=== PATIENT | male | born 1960 | race Caucasian/White ===

== ENCOUNTER 2021-12-24 13:57 | Emergency (ER) | payer MEDICAID, OTHER ==
[~2021-12-24] VITALS: Ht 172.7 cm; Wt 93.0 kg
[~2021-12-24 13:57] MED LIST: ASPI-556 PO; GABA-1181 PO; INSLAN SQ; LISI-893 PO; METF500T PO; SIMV-260 PO
[2021-12-24 14:31] LABS: GLUCOSE,POINT OF CARE 317 MG/DL (70-110)
[2021-12-24] MEDS ORDERED: GLIP2.5T2 PO ×2 (16:05→16:18)
[2021-12-24] MEDS ORDERED: INSU100I26 SQ ×2 (16:05→16:18)
[2021-12-24] MEDS ORDERED: METF-1211 PO ×2 (16:05→16:18)
[2021-12-24] MEDS ORDERED: SIMV-260 PO ×2 (16:05→16:18)
[2021-12-24] MEDS ORDERED: OMEP20 PO ×2 (16:05→16:18)
[2021-12-24] MEDS ORDERED: FERR325T27 PO ×2 (16:07→16:18)
[2021-12-24 16:15] VITALS: BP 102/82
== END 2021-12-24 16:35 | disposition home or self-care (01) ==
LOC: EMS 13:57
DX: E11.65 Type 2 diabetes mellitus with hyperglycemia (principal); E78.00 Pure hypercholesterolemia, unspecified; F10.20 Alcohol dependence, uncomplicated; F17.210 Nicotine dependence, cigarettes, uncomplicated; I10 Essential (primary) hypertension; Z76.0 Encounter for issue of repeat prescription
CPT/HCPCS: 82962; 99282

== ENCOUNTER 2023-07-02 06:11 | Emergency (ER) | payer MEDICAID, OTHER ==
[~2023-07-02] VITALS: Ht 177.8 cm; Wt 90.9 kg
[~2023-07-02 06:11] MED LIST changes: -ASPI-556 PO; +FERR325T27 PO; -GABA-1181 PO; +GLIP2.5T28 PO; -INSLAN SQ; +INSU100I26 SQ; -LISI-893 PO; +METF-1211 PO; -METF500T PO; +OMEP20 PO
[2023-07-02 06:20] VITALS: BP 120/65; PULSE 89; RESP 15; TEMP 97.7
[2023-07-02] MEDS ORDERED: CEPH-558 PO (07:01)
[2023-07-02] MEDS ORDERED: SULF-261 PO (07:01)
[2023-07-02 08:36] LABS: GLUCOMETER DEV NAME(LOC) ER.6; GLUCOSE,POINT OF CARE 269 MG/DL (70-110)
== END 2023-07-02 07:21 | disposition home or self-care (01) ==
LOC: EMS 06:12
DX: L02.214 Cutaneous abscess of groin (principal); E11.40 Type 2 diabetes mellitus with diabetic neuropathy, unspecified; E78.00 Pure hypercholesterolemia, unspecified; I10 Essential (primary) hypertension; F17.210 Nicotine dependence, cigarettes, uncomplicated
CPT/HCPCS: 82962; 99283

== ENCOUNTER 2023-07-07 08:15 | Emergency (ER) | payer OTHER ==
[~2023-07-07] VITALS: Ht 177.8 cm; Wt 86.4 kg
[~2023-07-07 08:15] MED LIST changes: +CEPH-558 PO; +SULF-261 PO
[2023-07-07 08:22] VITALS: TEMP 98.2
[2023-07-07 08:45] VITALS: BP 107/72; PULSE 75; RESP 18
== END 2023-07-07 08:59 | disposition home or self-care (01) ==
LOC: EMS 08:15
DX: L02.214 Cutaneous abscess of groin (principal); E78.00 Pure hypercholesterolemia, unspecified; E11.9 Type 2 diabetes mellitus without complications; I10 Essential (primary) hypertension; F17.210 Nicotine dependence, cigarettes, uncomplicated; Z98.890 Other specified postprocedural states
CPT/HCPCS: 82962; 99282

== ENCOUNTER 2024-10-26 16:58 | Emergency (ER) | payer OTHER ==
[~2024-10-26] VITALS: Ht 180.3 cm; Wt 100.0 kg
[~2024-10-26 16:58] MED LIST changes: +OMEP-148 PO; -OMEP20 PO
[2024-10-26 17:03] VITALS: TEMP 98.4
[2024-10-26] MEDS ORDERED: INSU100I3 SD (17:10)
[2024-10-26] MEDS ORDERED: ASPI-1444 PO (17:10)
[2024-10-26] MEDS ORDERED: METF-446 PO (17:10)
[2024-10-26 17:58] LABS: BASOPHILS % (AUTO) 0.9 % (0.0-2.0); HEMATOCRIT 38.1 % (41-53); HEMOGLOBIN 12.9 g/dL (13.5-17.5); LYMPHOCYTES # (AUTO) 1.6 K/uL (1.0-4.8); LYMPHOCYTES % (AUTO) 30.5 % (22.0-44.0); MEAN CORPUSCULAR HEMOGLOBIN 32.2 pg (26.0-34.0); MEAN CORPUSCULAR HGB CONC 33.9 G/dL (31.0-37.0); MEAN CORPUSCULAR VOLUME 95 fL (80-100); MONOCYTES # (AUTO) 0.5 K/uL (0.1-1.0); MONOCYTES % (AUTO) 9.3 % (2.0-9.0); NEUTROPHILS % (AUTO) 57.3 % (40.0-70.0); PLATELET COUNT (AUTO) 280 K/uL (150-450); RED BLOOD CELL COUNT(AUTO) 4.02 MIL/uL (4.50-5.90); RED CELL DISTRIBUTION WIDTH 12.4 % (11.5-14.5); WHITE BLOOD COUNT (AUTO) 5.2 K/uL (4.5-11.0)
[2024-10-26 18:00] LABS: ANION GAP 5 mmol/L (8-16); CALCIUM, TOTAL 8.8 mg/dL (8.8-10.5); CARBON DIOXIDE 28 mmol/L (22-29); CHLORIDE 100 mmol/L (98-107); CREATININE 1.12 mg/dL (0.60-1.30); GLOMERULAR FILTR. RATE CALC > 60 mL/min (>60); POTASSIUM 4.4 mmol/L (3.5-5.1); SODIUM SERUM 133 mmol/L (136-145); UREA NITROGEN, BLOOD 24 mg/dL (7-18)
[2024-10-26 18:09] LABS: GLUCOSE,RANDOM 493 mg/dL (70-110)
[2024-10-26] MEDS: INSULIN LISPRO 100 UNITS/ML SQ ONE (18:51)
[2024-10-26 19:41] LABS: GLUCOMETER DEV NAME(LOC) ERT.6; GLUCOSE,POINT OF CARE 378 MG/DL (70-110)
[2024-10-26] MEDS ORDERED: BENZ-227 PO (20:06)
[2024-10-26 20:17] VITALS: BP 157/83; PULSE 85; RESP 18; O2SAT 95
== END 2024-10-26 20:33 | disposition home or self-care (01) ==
LOC: EMS 16:58
DX: R05.9 Cough, unspecified (principal); E11.40 Type 2 diabetes mellitus with diabetic neuropathy, unspecified; E11.319 Type 2 diabetes mellitus with unspecified diabetic retinopathy without macular edema; D64.9 Anemia, unspecified; K21.9 Gastro-esophageal reflux disease without esophagitis; I10 Essential (primary) hypertension; E78.00 Pure hypercholesterolemia, unspecified; F17.290 Nicotine dependence, other tobacco product, uncomplicated; Z79.4 Long term (current) use of insulin; Z79.82 Long term (current) use of aspirin; Z79.84 Long term (current) use of oral hypoglycemic drugs; Z79.899 Other long term (current) drug therapy; Z72.89 Other problems related to lifestyle
CPT/HCPCS: 71045; 80048; 82962; 85025; 96372; 99284; J1815; 36415-L1; 36415-TC